=== PATIENT | male | born 1990 | race Caucasian/White ===

== ENCOUNTER 2024-10-21 21:01 | Emergency (ER) | payer BC, OTHER ==
--- OUTSIDE RECORDS SUMMARY | 2024-10-21 21:03 | XMS REPORT | Continuity of Care Document ---
Author Name Unknown Address [address] [facility] [address] [place] [address] [facility] thconnect Address [address] [facility] [address] [place] [address] Care Team Providers Care Supervisor [place] Name Role Phone RAMON HUBBARD Primary Care Physician UnavailGRISEL Small Attending Clinician UnaALLISON Caicedo Attending Clinician Unavailable [id number] Attending Clinician Unavailable [id number] Attending Clinician Unavailable MARIVEL ALVAREZ Attending Clinician Unavailable [id number] Attending Clinician Unavailable JULIET LOAIZA Attending Clinician Unavailable JULIET LOAIZA Admitting Clinician Unavailable Payers Payer Name Policy Type Policy Number Effective Date Expirati on Date Source [employer] MP [facility] [employer] 5 [employer] EXPRESS[employer] ART THERAPIST 94 ON 9 [id number] 2023 00:00:00 Allergies, Adverse Reactions, Alerts Allergy Name Allergy Type Status Severity Reaction(s) Onset Date Inactive Date Treating Clinician Comments Source NO KNOWN ALLERGIE S Drug Class Active [facility] Social History Social Habit Start Date Stop Date Quantity Comments Source Sexual orientation Ming Gomez - External History of Social function 2024-10-15 00:00:00 2024-10-15 00:00:00 Dusty Gomez - External Sex 2023-12-31 21:30:52 2023-12-31 21:30:52 Male (finding) Dusty Gomez - External Sex assigned at 1990 00:00:00 1990 00:00:00 Dusty Gomez - External Smoking Status Start Date Stop Date Source Never smoked tobacco Dusty Gomez - External Vital Signs Vital Name Observation Time Observation Value Comments S ource Systolic blood pressure 2024-09-21 20:33:00 137 mm[Hg] Dusty Fabian ld - External Diastolic blood pressure 2024-09-21 20:33:00 85 mm[Hg] Dusty Crowo ld - External Heart rate 2024-09-21 20:33:00 67 /min Maunel Gomez - External Body temperature 2024-09-21 20:33:00 36.22 Shikha Dusty Gomez - External Respiratory rate 2024-09-21 20:33:00 16 /min Dusty Gomez - External Body height 2024-09-21 20:33:00 172.7 cm Mary anderson Seybmilvia - External Body weight 2024-09-21 20:33:00 89.359 kg Mary anderson Seybold - External BMI 2024-09-21 20:33:00 29.95 kg/m2 Mary anderson Seybmilvia - External Oxygen saturation in Arterial blood by Pulse oximetry 2024-09-21 20:33:00 98 /min Dusty Fabian ld - External Encounters Start Date/Time End Date/Time Encounter Type Admission Type Attending [facility] Care Department Encounter ID Source 2025-01-13 14:10:00 2025-01-13 14:10:00 Outpatient GRISEL SEBASTIAN [id number] Dusty Seybmilvia 2024-12-31 10:00:00 2024-12-31 10:00:00 Outpatient ALLISON LACKEY [id number] Dusty Seybmilvia 2024-12-22 14:10:00 2024-12-22 14:10:00 Outpatient GRISEL SEBASTIAN [id number] Dusty Seybmilvia 2024-10-25 13:15:00 2024-10-25 13:15:00 Outpatient ELISABETH7 DUSTY MONTANO [id number] Dusty Seybmilvia 2024-10-18 00:00:00 2024-10-18 00:00:00 Outpatient TRED56 DUSTY MONTANO [id number] Dusty Seybmilvia 2024-10-18 00:00:00 2024-10-18 00:00:00 Outpatient MARIVEL ALVAREZ [id number] Dusty Seybmilvia 2024-10-18 00:00:00 2024-10-18 00:00:00 Outpatient ALLISON LACKEY [facility] [id number] [facility] 2024-10-15 16:00:00 2024-10-15 16:00:00 Outpatient ALLISON LACKEY DUSTY MONTANO [id number] [facility] 2024-10-15 00:00:00 2024-10-15 00:00:00 Outpatient MARIVEL ALVAREZ D[facility] MONTANO [id number] [facility] 2024-10-12 14:00:00 2024-10-12 14:00:00 Outpatient ALLISON LACKEY D[facility]ONTANO [id number] [facility] 2024-10-11 00:00:00 2024-10-11 00:00:00 Outpatient ALLISON LACKEY DUSTY MONTANO [id number] Dusty [facility] 2024-10-08 15:15:00 2024-10-08 15:15:00 Outpatient DUSTY MONTANO [id number] [facility] 2024-09-27 00:00:00 2024-09-27 00:00:00 Outpatient ALLISON LACKEY D[facility] MONTANO [id number] [facility] 2024-09-23 00:00:00 2024-09-23 00:00:00 Outpatient ALLISON LACKEY D[facility]Y MONTANO [id number] [facility] 2024-09-21 15:45:00 2024-09-21 15:45:00 Outpatient TRED47 DUSTY MONTANO [id number] [facility] 2024-09-21 15:35:00 2024-09-21 15:35:00 Outpatient DUSTY MONTANO [id number] [facility] 2024-09-21 15:25:00 2024-09-21 15:25:00 Outpatient LAB47 DUSTY MONTANO [id number] [facility] 2024-09-21 14:30:00 2024-09-21 14:30:00 Outpatient ALLISON LACKEY DUSTY MONTANO [id number] [facility] 2019-09-29 22:11:20 2019-09-30 22:50:00 Inpatient X JULIET LOAIZA [facility] [id number] [facility]
[2024-10-21] MEDS ORDERED: FAMOTIDINE 20 MG TAB ONE (21:53)
--- NOTE | 2024-10-21 22:10 | RAD REPORT ---
EXAMINATION: ONE VIEW CHEST XR CLINICAL INDICATION: CHEST PAIN TECHNIQUE: Frontal chest projection is submitted. Examination is limited by patient positioning and t echnique. COMPARISON: No prior exam. FINDINGS: Nonspecific peribronchial thickening without focal consolidation could represent a viral or inflammat ory process. The heart is normal in size. No displaced fractures identified. IMPRESSION: Interstitial pattern bilaterally could be related to viral infection or reactive airway disease.
[2024-10-21 22:14] LABS: Absolute Basophils 0.1 K/uL (0-0.5); Absolute Eosinophils 0.3 K/uL (0-0.5); Absolute Lymphocytes (CBC) 2.5 K/uL (0.7-4.9); Absolute Monocytes 0.7 K/uL (0.1-1.3); Absolute Neutrophil 4.2 K/uL (1.8-8.0); Basophils % 0.7 % (0-1.3); Eosinophils % 3.6 % (0-4.4); Hematocrit 41.8 % (39.6-49.0); Hemoglobin 13.9 g/dL (13.6-17.9); Lymphocytes % 32.6 % (15.3-44.8); MCH 28.9 pg (27.0-35.0); MCHC 33.3 g/dL (32.0-36.0); MCV 86.7 fL (80-100); MPV 7.8 fL (7.6-11.3); Monocytes % 8.9 % (3.3-12.3); Neutrophils % 54.2 % (41.7-73.7); Platelets 230 thou/uL (152-406); RBC Red Blood Cell Count 4.82 M/uL (4.33-5.43); Red Cell Distribution Width 12.9 % (12.1-15.2)
[2024-10-21 22:16] LABS: PT Prothrombin Time 11.2 SECONDS (9.4-12.5)
[2024-10-21 22:30] LABS: ALT/SGPT 23 U/L (16-61); AST/SGOT 20 U/L (15-37); Albumin 3.8 g/dL (3.4-5.0); Albumin/Globulin Ratio 1.2 (1.1-1.8); Alkaline Phosphatase 42 U/L (45-117); Anion Gap 6.5 mEq/L (5.0-15.0); BUN Blood Urea Nitrogen 14 mg/dL (7-18); Bicarbonate 27 mEq/L (21-32); Bilirubin Total 0.3 mg/dL (0.2-1.0); Globulin 3.2 g/dL (2.3-3.5); Glomerular Filtration Rate 93 ml/min (=/>90); Glucose Level 102 mg/dL (74-106); Magnesium 2.1 mg/dL (1.6-2.4); NT PRO-BNP 67 pg/mL (<125); Potassium 3.5 mEq/L (3.5-5.1); Sodium Level 139 mEq/L (136-145); Troponin High Sensitivity 9.3 pg/mL (<58.9)
[2024-10-21 22:33] LABS: Bilirubin Direct < 0.2 mg/dL (0-0.2); Bilirubin Indirect, Calculated 0.1 mg/dL (0.2-0.8)
--- NOTE | 2024-10-22 00:41 | RAD REPORT ---
CT CHEST ABDOMEN PELVIS ANGIOGRAPHY WITH IV CONTRAST Clinical Indication: 34 years old Male with Chest pain Comparison: None Technique: Postcontrast images of the chest, abdomen and pelvis acquired with intravenous contrast us ing angiographic protocol. Coronal and sagittal 3D MIP images reviewed. This study was performed using dose reduction techniques to include automated exposure control and/or adjustment of the mA and/or kV according to patient size. FINDINGS: VASCULAR SYSTEM: The aorta is normal in diameter and enhancement measurin.3 cm AP at the level of the aortic root 2.5 cm at the level of the mid ascending aorta 2.2 cm at the level of the aortic arch 2 cm at the level of the mid descending aorta 1.9 cm at the level of the aortic hiatus, 1.6 cm at the level of the renal arteries 1.4 cm just proximal to the iliac bifurcation. There is no atherosclerotic plaque. No evidence of dissection or penetrating ulceration. Mesenter ic branch pattern, diameter and enhancement is normal. Main pulmonary artery has a normal diameter of 2.4 cm transverse. No pulmonary artery filling defects . NONVASCULAR SYSTEM: CHEST: No consolidation, pleural effusion, or pathologic adenopathy based on size criteria. Minimal biapical scarring. 2.5 mm pleural-based micronodule on image 81, series 401, likely prior inf ectious and/or inflammatory disease. Heart is normal in size. Partially visualized thyroid gland homogeneously enhances. Mild multilevel thoracic spondylosis. ABDOMEN AND PELVIS: Liver: Mild diffuse hepatic hypoattenuation, most suggestive of diffuse steatosis. Right lobe of the liver measures 17.2 cm in CC dimension. Pancreas, spleen, adrenals, kidneys and ureters: No pancreatic, adrenal or renal lesion. Heterogen eous early arterial phase splenic enhancement. No nephrolithiasis or hydronephrosis. Gallbladder, bile ducts: Contracted gallbladder. No calcified cholelithiasis, biliary ductal dilatati on, or pericholecystic inflammation. Gastrointestinal tract: Moderate colonic stool. No small bowel obstruction. Normal diameter gas-herbert led appendix. Mesentery, retroperitoneum: No free air, ascites or loculated fluid. Lymph nodes: No pathologic adenopathy based on size criteria. Urinary bladder, reproductive organs: No urinary bladder lesion. 2 mm prostate gland calcification. Bones: Mild multilevel spondylosis. Soft tissues: Tiny umbilical hernia containing adipose tissue. IMPRESSION: 1. No aortic aneurysm or dissection. 2. No evidence for pulmonary thromboembolic disease. 3. Mild diffuse hepatic steatosis. 4. Moderate colonic stool. Electronically signed by: Adam Manley MD 10/22/2024 12:35 AM [facility] Due to temporary technical issues with the [email or web address] reporting system, reports are being maya d by the in-house radiologist without review as a courtesy to ensure prompt reporting the interpreting radiologist is fully responsible for the content of the report. Transcribed Date/Time: 10/22/2024 12:41 AM
--- NOTE | 2024-10-22 00:55 | EDPHYS ---
Physician Documentation [facility] Name: Alex Avelar Age: 34 yrs Sex: Male : 1990 Arrival Date: 10/21/2024 Time: 21:01 Bed 24 Private MD: ED Physician Manuel Ferreira HPI: 10/21 21:11 This 34 yrs old Male presents to ER via Unassigned with complaints of Chest sp4 Pain. 10/22 20:48 34-year-old male presents with lower sternal sharp stabbing chest pain which has sp4 started about a month ago. Patient went through echocardiogram at cardiology office in [place] which has revealed EF greater than 60% and normal contractility. Patient states pain is not exertional and occurs spontaneously causing midsternal stabbing pain associated with soreness that can last up to 24 hours. 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 . Historical: - Allergies: 10/21 21:18 No Known Allergies; cm10 - Home Meds: 21:18 None [Active]; cm10 - PMHx: 21:18 Hypoglycemia; cm10 - PSHx: 21:18 None; cm10 - Immunization history:: Adult Immunizations up to date. - Infectious Disease History:: Denies. - Social history:: Smoking status: Patient denies any tobacco usage or history of. - Family history:: not pertinent. ROS: 10/22 20:48 Constitutional: Negative for fever, chills, and weight loss, positive for lower sternal sp4 stabbing chest pain All other systems are negative, Exam: 20:48 Constitutional: This is a well developed, well nourished patient who is awake, alert, sp4 and in no acute distress. Head/Face: Normocephalic, atraumatic. Eyes: Pupils equal round and reactive to light, extra-ocular motions intact. Lids and lashes normal. Conjunctiva and sclera are not injected. Cornea within normal limits. Periorbital areas with no swelling, redness, or edema. ENT: Nares patent. No nasal discharge, no septal abnormalities noted. Tympanic membranes are normal and external auditory canals are clear. Oropharynx with no redness, swelling, or masses, exudates, or evidence of obstruction, uvula midline. Mucous membranes moist. Neck: Trachea midline, no thyromegaly or masses palpated, and no cervical lymphadenopathy. Supple, full range of motion without nuchal rigidity, or vertebral point tenderness. Chest/axilla: Normal chest wall appearance and motion. Nontender with no deformity. No lesions are appreciated. Cardiovascular: Regular rate and rhythm with a normal S1 and S2. No gallops, murmurs, or rubs. Normal PMI, no JVD. No pulse deficits. Respiratory: Lungs have equal breath sounds bilaterally, clear to auscultation and percussion. No rales, rhonchi or wheezes noted. No increased work of breathing, no retractions or nasal flaring. Abdomen/GI: Soft, with normal bowel sounds. No distension or tympany. No guarding or rebound. No evidence of tenderness throughout. Back: No spinal tenderness. No costovertebral tenderness. Skin: Warm, dry with normal turgor. Normal color with no rashes, no lesions, and no evidence of cellulitis. MS/ Extremity: Pulses equal, no cyanosis. Neurovascular intact. Full, normal range of motion. Neuro: Awake and alert, GCS 15, oriented to person, place, time, and situation. Cranial nerves II-XII grossly intact. Motor strength 5/5 in all extremities. Sensory grossly intact. Psych: Awake, alert, with orientation to person, place and time. Behavior, mood, and affect are within normal limits 20:48 ECG was reviewed by the Attending Physician. EKG at 6 Vital Signs: 10/21 21:16 BP 120 / 80; Pulse 64; Resp 16; Temp 98.4; Pulse Ox 99% on R/A; Weight 90.72 kg; Height cm10 5 ft. 8 in. ; Pain 5/10; 23:43 BP 130 / 80; Pulse 66; Resp 16; Pulse Ox 99% on R/A; jb4 10/22 00:30 BP 122 / 86; Pulse 73; Resp 16; Pulse Ox 98% on R/A; jb4 10/21 21:16 Body Mass Index 30.41 (90.72 kg, 172.72 cm) cm10 10/21 21:16 Pain Scale: Adult cm10 [place] Coma Score: 20:48 Eye Response: spontaneous(4). Motor Response: obeys commands(6). Verbal Response: sp4 oriented(5). Total: 15. MDM: 10/21 21:12 Medical Screening Exam initiated sp4 10/22 00:49 ED course: CT CHESTABDOMEN PELVIS ANGIOGRAPHYWITH IV CONTRAST Clinical Indication: 34 sp4 years old Male with Chest pain Comparison: None Technique: Postcontrast images of the chest, abdomen and pelvis acquired with intravenous contrast using angiographic protocol. Coronal and sagittal 3D MIP images reviewed. This study was performed using dose reduction techniques to include automated exposure control and/or adjustment of the mA and/or kV according to patient size. FINDINGS: VASCULAR SYSTEM: The aorta is normal in diameter and enhancement measurin.3 cm AP at the level of the aortic root 2.5 cm at the level of the mid ascending aorta 2.2 cm at the level of the aortic arch 2 cm at the level of the mid descending aorta 1.9 cm at the level of the aortic hiatus, 1.6 cm at the level of the renal arteries 1.4 cm just proximal to the iliac bifurcation. There is no atherosclerotic plaque. No evidence of dissection or penetrating ulceration. Mesenteric branch pattern, diameter and enhancement is normal. Main pulmonary artery has a normal diameter of 2.4 cm transverse. No pulmonary artery filling defects. NONVASCULAR SYSTEM: CHEST: No consolidation, pleural effusion, or pathologic adenopathy based on size criteria. Minimal biapical scarring. 2.5 mm pleural-based micronodule on image 81, series 401, likely prior infectious and/or inflammatory disease. Heart is normal in size. Partially visualized thyroid gland homogeneously enhances. Mild multilevel thoracic spondylosis. ABDOMEN AND PELVIS: Liver: Mild diffuse hepatic hypoattenuation, most suggestive of diffuse steatosis. Right lobe of the liver measures 17.2 cm in CC dimension. Pancreas, spleen, adrenals, kidneys and ureters: No pancreatic, adrenal or renal lesion. Heterogeneous early arterial phase splenic enhancement. No nephrolithiasis or hydronephrosis. Gallbladder, bile ducts: Contracted gallbladder. No calcified cholelithiasis, biliary ductal dilatation, or pericholecystic inflammation. Gastrointestinal tract: Moderate colonic stool. No small bowel obstruction. Normal diameter gas-filled appendix. Mesentery, retroperitoneum: No free air, ascites or loculated fluid. Lymph nodes: No pathologic adenopathy based on size criteria. Urinary bladder, reproductive organs: No urinary bladder lesion. 2 mm prostate gland calcification. Bones: Mild multilevel spondylosis. Soft tissues: Tiny umbilical hernia containing adipose tissue. IMPRESSION: 1. No aortic aneurysm or dissection. 2. No evidence for pulmonary thromboembolic disease. 3. Mild diffuse hepatic steatosis. 4. Moderate colonic stool. Electronically signed by: Adam Manley MD 10/22/2024 12:35 AM. 20:52 Differential diagnosis: acute pericarditis, anxiety, chest wall pain, costochondritis, sp4 esophagitis, gastritis. HEART Score: History: Slightly Suspicious (0), ECG: Normal (0), Age: < or = 45 years (0), Risk Factors: No Risk Factors Known (0), Troponin: < or = 1 x Normal Limit (0), Total Score = 0. Data reviewed: vital signs, nurses notes, old medical records, lab test result(s), cardiac enzymes, CBC, electrolytes, hepatic panel, EKG, radiologic studies, CT scan. ED course: Patient basically has normal workup. No risk factors. No signs of ACS, no signs of aortic problems on a CAT scan. Patient stable for discharge home. Will advised to continue with director data for outpatient stress test. . 10/21 21:12 Order name: Basic Metabolic Panel; Complete Time: 23:16 [facility] 10/21 21:12 Order name: CBC with Diff; Complete Time: 23:16 [facility] 10/21 21:12 Order name: LFT's; Complete Time: 23:16 [facility] 10/21 21:12 Order name: Magnesium; Complete Time: 23:16 [facility] 10/21 21:12 Order name: NT PRO-BNP; Complete Time: 23:16 [facility] 10/21 21:12 Order name: PT-INR; Complete Time: 23:16 [facility] 10/21 21:12 Order name: Troponin HS; Complete Time: 23:16 [facility] 10/21 21:12 Order name: XRAY Chest (1 view); Complete Time: 23:16 [facility] 10/21 21:26 Order name: CT Aorta for Dissection [facility] 10/21 21:12 Order name: Cardiac monitoring; Complete Time: 22:07 [facility] 10/21 21:12 Order name: EKG - Nurse/Tech; Complete Time: 21:18 [facility] 10/21 21:12 Order name: IV Saline Lock; Complete Time: 22:07 [facility] 10/21 21:12 Order name: Labs collected and sent; Complete Time: 22:07 sp4 10/21 21:12 Order name: O2 Per Protocol; Complete Time: 21:51 sp4 10/21 21:12 Order name: O2 Sat Monitoring; Complete Time: 21:51 sp4 EC/26 21:16 Rate is 64 beats/min. Rhythm is regular, Normal Sinus Rhythm. QRS [place] is Normal. MT sp4 interval is normal. QRS interval is normal. QT interval is normal. No Q waves. T waves are Normal. No ST changes noted. Clinical impression: Normal ECG. Interpreted by me. Reviewed by me. Administered Medications: 21:55 Drug: Famotidine PO 40 mg PO once Route: PO; jb4 10/22 01:03 Follow up: Response: No adverse reaction; Marked relief of symptoms jb4 Disposition: 20:54 Chart complete. sp4 Disposition Summary: 10/22/24 00:54 Discharge Ordered Notes: Location: Home sp4 Problem: new sp4 Symptoms: have improved sp4 Condition: Stable sp4 Diagnosis - Chest pain, unspecified sp4 - Non cardiac Chest pain sp4 Followup: sp4 - With: Private Physician - When: 7 - 10 days - Reason: Recheck today's complaints Discharge Instructions: - Discharge Summary Sheet sp4 - Nonspecific Chest Pain, Adult, [id number] sp4 Forms: - Patient Portal Instructions sp4 Signatures: Dispatcher [employer] Khalif Clemente, RN RN jb4 Manuel Ferreira MD MD sp4 Renetta Sung RN RN cm10 Corrections: (The following items were deleted from the chart) 10/21 21:12 21:12 BASIC METABOLIC PANEL+C.LAB.BRZ ordered. EDMS EDMS 21:12 21:12 CBC+H.LAB.BRZ ordered. EDMS EDMS 21:12 21:12 HEPATIC FUNCTION+C.LAB.BRZ ordered. EDMS EDMS 21:12 21:12 MAGNESIUM+C.LAB.BRZ ordered. EDMS EDMS 21:12 21:12 PROBNP+C.LAB.BRZ ordered. EDMS EDMS 21:12 21:12 PROTIME (+INR)+COAG.LAB.BRZ ordered. EDMS EDMS 21:12 21:12 Troponin High Sensitivity+C.LAB.BRZ ordered. EDMS EDMS 21:12 21:12 Chest Single View+RAD.RAD.BRZ ordered. EDMS EDMS
--- NOTE | 2024-10-22 00:55 | ER ---
Nurse's Notes [facility] Name: Alex Avelar Age: 34 yrs Sex: Male : 1990 Arrival Date: 10/21/2024 Time: 21:01 Bed 24 Private MD: Diagnosis: Chest pain, unspecified;Non cardiac Chest pain Presentation: 10/21 21:16 Chief complaint: Patient states: chest pain to the center of chest onset 1 month ago. cm10 pt states that the pain feels like he has been punched. Pt sent to the ER by urgent care due to "abnormal EKG". Coronavirus screen: Client denies travel out of the [place] in the last 14 days. Ebola Screen: Patient denies travel to an Ebola-affected area in the 21 days before illness onset. No symptoms or risks identified at this time. Initial Sepsis Screen: Does the patient meet any 2 criteria? No. Patient's initial sepsis screen is negative. Does the patient have a suspected source of infection? No. Patient's initial sepsis screen is negative. Risk Assessment: Do you want to hurt yourself or someone else? Patient reports no desire to harm self or others. Onset of symptoms was October 21, 2024. 21:16 Method Of Arrival: Wheelchair cm10 21:16 Acuity: WARREN 3 cm10 Historical: - Allergies: 21:18 No Known Allergies; cm10 - Home Meds: 21:18 None [Active]; cm10 - PMHx: 21:18 Hypoglycemia; cm10 - PSHx: 21:18 None; cm10 - Immunization history:: Adult Immunizations up to date. - Infectious Disease History:: Denies. - Social history:: Smoking status: Patient denies any tobacco usage or history of. - Family history:: not pertinent. Screenin:07 [facility] ED Fall Risk Assessment (Adult) History of falling in the last 3 months, jb4 including since admission No falls in past 3 months (0 pts) Confusion or Disorientation No (0 pts) Intoxicated or Sedated No (0 pts) Impaired Gait No (0 pts) Mobility Assist Device Used No (0 pt) Altered Elimination No (0 pt) Score/Fall Risk Level 0 - 2 = Low Risk Oriented to surroundings, Maintained a safe environment. Abuse screen: Denies threats or abuse. Nutritional screening: No deficits noted. Tuberculosis screening: No symptoms or risk factors identified. Assessment: 22:07 General: Appears in no apparent distress. comfortable, Behavior is calm, cooperative, jb4 appropriate for age. Pain: Complains of pain in xiphoid area Pain does not radiate. Pain currently is 5 out of 10 on a pain scale. Neuro: Level of Consciousness is awake, alert, obeys commands, Oriented to person, place, time, situation. Cardiovascular: Patient's skin is warm and dry. Respiratory: Airway is patent Respiratory effort is even, unlabored, Respiratory pattern is regular, symmetrical. Derm: Skin is intact, Skin is pink, warm \\T\\ dry. Musculoskeletal: Circulation, motion, and sensation intact. Range of motion: intact in all extremities. 23:43 Reassessment: Patient appears in no apparent distress at this time. Patient and/or jb4 family updated on plan of care and expected duration. Pain level reassessed. Patient is alert, oriented x 3, equal unlabored respirations, skin warm/dry/pink. 10/22 01:02 Reassessment: Patient appears in no apparent distress at this time. Patient and/or jb4 family updated on plan of care and expected duration. Pain level reassessed. Patient is alert, oriented x 3, equal unlabored respirations, skin warm/dry/pink. Vital Signs: 10/21 21:16 BP 120 / 80; Pulse 64; Resp 16; Temp 98.4; Pulse Ox 99% on R/A; Weight 90.72 kg; Height cm10 5 ft. 8 in. ; Pain 5/10; 23:43 BP 130 / 80; Pulse 66; Resp 16; Pulse Ox 99% on R/A; jb4 10/22 00:30 BP 122 / 86; Pulse 73; Resp 16; Pulse Ox 98% on R/A; jb4 10/21 21:16 Body Mass Index 30.41 (90.72 kg, 172.72 cm) cm10 10/21 21:16 Pain Scale: Adult cm10 [place] Com[place] Score: 20:48 Eye Response: spontaneous(4). Motor Response: obeys commands(6). Verbal Response: sp4 oriented(5). Total: 15. ED Course: 10/21 21:02 Patient arrived in ED. mr 21:11 Manuel Ferreira MD is Attending Physician. sp4 21:18 Triage completed. cm10 21:18 Arm band placed on left wrist. Patient placed in an exam room, on a stretcher. EKG cm10 completed in triage. Results shown to MD. 21:18 EKG done, by ED staff, reviewed by Manuel Ferreira MD. cm10 22:01 XRAY Chest (1 view) In Process Unspecified. EDMS 22:01 No provider procedures requiring assistance completed. Inserted saline lock: 18 gauge jb4 in right antecubital area, using aseptic technique. Blood collected. Patient maintains SpO2 saturation greater than 95% on room air. 22:07 Patient has correct armband on for positive identification. Bed in low position. Call jb4 light in reach. Side rails up X 1. Provided Education on: plan of care. Client placed on continuous cardiac and pulse oximetry monitoring. NIBP monitoring applied. monitoring analyst on. Pulse ox on. 22:07 Basic Metabolic Panel Sent. jb4 22:07 LFT's Sent. jb4 22:07 CBC with Diff Sent. jb4 22:07 Magnesium Sent. jb4 22:07 NT PRO-BNP Sent. jb4 22:07 Troponin HS Sent. jb4 22:07 PT-INR Sent. jb4 23:05 CT Aorta for Dissection In Process Unspecified. EDMS 23:43 Khalif Quiroz, RN is Primary Nurse. jb4 10/22 01:03 IV discontinued, intact, bleeding controlled, No redness/swelling at site. Pressure jb4 dressing applied. Administered Medications: 10/21 21:55 Drug: Famotidine PO 40 mg PO once Route: PO; jb4 10/22 01:03 Follow up: Response: No adverse reaction; Marked relief of symptoms jb4 Medication: 10/21 22:07 VIS not applicable for this client. jb4 Outcome: 10/22 00:54 Discharge ordered by . sp4 01:03 Discharged to home ambulatory, jb4 01:03 Condition: stable 01:03 Discharge instructions given to patient, Instructed on discharge instructions, follow up and referral plans. Demonstrated understanding of instructions, follow-up care, 01:04 Patient left the ED. jb4 Signatures: Dispatcher [employer] EDPA DevanteJennifer, Reg Reg mr Khalif Quiroz, RN RN jb4 Manuel Ferreira MD MD sp4 Pineda, Renetta, RN RN cm10
[2024-10-22 01:18] VITALS: TEMP 98.4
[2024-10-22 01:29] VITALS: BP 122/86; O2SAT 98
--- NOTE | 2024-10-22 13:36 | EKG ---
Test Date: 2024-10-21 Test Time: 21:13:37 Consumer Affairs Specialist: [place] MEASUREMENT RESULTS: Intervals: Rate: 73 NJ: 150 QRSD: 102 QT: 376 QTc: 414 [place]: P: 68 NJ: 150 QRS: 75 T: 11 INTERPRETIVE STATEMENTS: Normal sinus rhythm Normal ECG No previous ECG available for comparison Electronically Signed On 10-22-24 13:35:40 SKI PATROL by Olivier March
== END 2024-10-22 01:04 | disposition home or self-care (01) ==
LOC: ER 21:01
DX: R07.89 Other chest pain (principal)
CPT/HCPCS: 93005; 85025; 80048; 36415; 83735; 85610; 80076; 84484; 83880; 71275; 74175; 71045; 99285; Q9967